=== PATIENT | male | born 1960 | race Two or more races ===

== ENCOUNTER 2017-08-12 08:58 | Day surgery (SDC) | payer BC ==
[2017-08-08 13:02] VITALS: BP 150/104
[~2017-08-12] VITALS: Ht 162.6 cm; Wt 80.7 kg
[~2017-08-12 08:58] MED LIST: ALBU18HF INH; ANTI1CAP PO; BUPIVACAINE/PF 0.25% ONE; CEPH-368 PO; CYCL-259 PO; EPINEPHRINE 1 MG/ML, 1ML ONE; FLUT1DIS IH; IBUP-1223 PO; LIDOCAINE/PF 0.5% ,50ML ONE; MONT10TA9 PO; OMEP20CA9 PO; OXYC-302 PO; PARO10TA3 PO; SILD20TA2 PO; TEST1.25 TP; THROMBIN 5,000 UNIT VIAL TP ONE; VANCOMYCIN 1,000 MG ONE
[2017-08-12] MEDS ORDERED: LACTATED RINGERS 1,000 ML IV SCH (09:30)
[2017-08-12] MEDS ORDERED: MIDAZOLAM 1 MG/ML, 2ML ONE (11:44)
[2017-08-12] MEDS ORDERED: FENTANYL PF 100 MCG/2ML ONE ×2 (11:44→13:12)
[2017-08-12] MEDS ORDERED: LIDOCAINE GEL 2%, 5ML ONE (11:48)
[2017-08-12] MEDS ORDERED: ONDANSETRON 2MG/ML, 2ML IVPush PRN (14:30)
[2017-08-12] MEDS ORDERED: HYDROmorphone 1 MG/ML, 1ML IV PRN (14:30)
[2017-08-12] MEDS ORDERED: MIDAZOLAM 1 MG/ML, 2ML IV PRN (14:30)
[2017-08-12] MEDS ORDERED: MEPERIDINE/PF 25MG/0.5ML IVPush PRN (14:30)
[2017-08-12] MEDS ORDERED: LABETALOL 5MG/ML, 20ML IV PRN (14:30)
[2017-08-12] MEDS ORDERED: FENTANYL PF 100 MCG/2ML IV PRN (14:30)
[2017-08-12] MEDS ORDERED: ACETAMINOPHEN 650 MG/20.3 ML UDC ONE (14:35)
[2017-08-12] MEDS ORDERED: OXYcodone 5 MG/5 ML ORAL.SOL UDC ONE (14:36)
[2017-08-12] MEDS ORDERED: OXYcodone 5 MG/5 ML ORAL.SOL UDC PO PRN (15:00)
[2017-08-12] MEDS ORDERED: ACETAMINOPHEN 325 MG TABLET PO PRN (15:00)
[2017-08-12] MEDS ORDERED: DEXAMETHASONE 4 MG/ML, 1ML ONE (15:28)
[2017-08-12] MEDS ORDERED: PHENYLEPHRINE 10 MG/ML ONE (15:28)
[2017-08-12] MEDS ORDERED: METOCLOPRAMIDE 5 MG/ML, 2ML ONE (15:28)
[2017-08-12] MEDS ORDERED: CEFAZOLIN 1,000 MG ONE (15:28)
[2017-08-12] MEDS ORDERED: PROPOFOL 10 MG/ML, 20ML ONE (15:28)
[2017-08-12] MEDS ORDERED: EPHEDRINE 50 MG/ML, 1ML ONE (15:28)
[2017-08-12] MEDS ORDERED: KETAMINE 10 MG/ML, 20ML ONE (15:29)
== END 2017-08-12 17:45 ==
LOC: OUT 08:58
PROVIDERS: ATTEND Orthopaedic Surgery Orthopaedic Surgery of the Spine
DX: M51.26 Other intervertebral disc displacement, lumbar region (principal); J45.909 Unspecified asthma, uncomplicated; F17.210 Nicotine dependence, cigarettes, uncomplicated
CPT/HCPCS: 63030; 72100; J0171; J0690; J1100; J2001; J2250; J2370; J2704; J2765; J3010; J3370; J3490; J7120